=== PATIENT | male | born 1970 | race Caucasian/White ===

== ENCOUNTER 2018-05-19 09:51 | Day surgery (SDC) | payer MEDICAID ==
[2018-05-15 15:22] LABS: BASOPHILS % (AUTO) 0.5 % (0-1); EOSINOPHILS # (AUTO) 0.1 X10'3 (0-0.9); EOSINOPHILS % (AUTO) 1.1 % (0-6); LYMPHOCYTES # (AUTO) 1.6 X10'3 (1.1-4.8); LYMPHOCYTES % (AUTO) 17.5 % (21-51); MEAN CORPUSCULAR HEMOGLOBIN 30.3 PG (27.0-31.0); MEAN CORPUSCULAR HGB CONC 32.4 % (33.0-36.5); MEAN CORPUSCULAR VOLUME 93.5 FL (78-98); MONOCYTES # (AUTO) 0.7 X10'3 (0-0.9); MONOCYTES % (AUTO) 7.7 % (2-12); NEUTROPHILS # (AUTO) 6.9 X10'3 (1.8-7.7); NEUTROPHILS % (AUTO) 73.2 % (42-75); PRE OP HEMATOCRIT 44.2 % (42.0-52.0); PRE OP HEMOGLOBIN 14.3 g/dL (14.0-17.9); PRE OP PLATELET COUNT 258 X10'3 (140-440); RED BLOOD COUNT 4.72 X10'6 (4.70-6.10); RED CELL DISTRIBUTION WIDTH 15.2 % (11.5-14.5)
[2018-05-15 15:27] LABS: CLARITY,URINE CLEAR (Clear); COLOR,URINE YELLOW (Yellow); GLUCOSE, URINE NEGATIVE (Neg); KETONES,URINE NEGATIVE (Neg); LEUKOCYTE ESTERASE ,URINE NEGATIVE (Neg); NITRITES, URINE NEGATIVE (Neg); OCCULT BLOOD,URINE NEGATIVE (Neg); PROTEIN,URINE NEGATIVE (Neg); UA COLLECTION TYPE CLN CATCH MIDSTREAM; UROBILINOGEN,URINE 0.2 E.U/dL (0.2-1.0)
[2018-05-15 15:37] LABS: ALBUMIN 3.7 G/DL (3.4-5.0); ALKALINE PHOSPHATASE 52 IU/L (46-116); BLOOD UREA NITROGEN 9 MG/DL (7-18); BUN/CREATININE RATIO 10.8 (5.4-32.0); CALCIUM 8.8 MG/DL (8.5-10.1); CHLORIDE 105 MMOL/L (99-107); CREATININE 0.83 MG/DL (0.60-1.10); PRE OP ALT 22 U/L (30-65); PRE OP ANION GAP 9 (8-16); PRE OP AST 11 U/L (10-37); PRE OP BILIRUB, TOTAL 0.3 MG/DL (0.0-1.0); PRE OP GLUCOSE 105 MG/DL (70-104); PRE OP POTASSIUM 4.2 MMOL/L (3.4-5.1); PRE OP SODIUM 138 MMOL/L (135-145); TOTAL CARBON DIOXIDE 24.1 MMOL/L (24-32); TOTAL PROTEIN 7.3 G/DL (6.4-8.2); eGFR > 90 ML/MIN
[2018-05-19] VITALS (9 sets, daily range): BP systolic 122–140; BP diastolic 67–90
[~2018-05-19] VITALS: Ht 172.7 cm; Wt 88.5 kg
[~2018-05-19 09:51] MED LIST: ASPI-1140 PO; ESCI20TA38 PO; OMEP-50 PO; TAMS0.4C32 PO; ZOLP10TA5 PO; cefazolin/dext.iso 2gm/100 ML IV ONE; famotidine 20mg tablet PO ONE; ringers solution, lacted 1,000 ML IV SCH
[2018-05-19] MEDS ORDERED: LIDOcaine 1% (10mg/ml) 2ml vial ONE (09:55)
[2018-05-19] MEDS ORDERED: sevoflurane 250ml liquid IH ONE (12:09)
[2018-05-19] MEDS ORDERED: fentaNYL/PF 50MCG/1 ML 2ML syringe ONE (12:13)
[2018-05-19] MEDS ORDERED: midazolam 2 mg/2 ml injection ONE (12:14)
[2018-05-19] MEDS ORDERED: propofol inj 20 ML IV ONE (12:15)
[2018-05-19] MEDS ORDERED: ROPIVAcaine 0.5% (5mg/ml) 30ml vial ONE (12:20)
[2018-05-19] MEDS ORDERED: ringers solution, lacted 1,000 ML IV SCH (12:38)
[2018-05-19] MEDS ORDERED: ondansetron/PF 4mg/2ml inj IV PRN (12:40)
[2018-05-19] MEDS ORDERED: morphine 4 MG/ML inj SYRINge IV PRN ×2 (12:40)
[2018-05-19] MEDS ORDERED: meperidine/PF 25mg/ml syringe IV PRN ×3 (12:40)
[2018-05-19] MEDS ORDERED: proCHLORperazine 10 MG/2 ml inj IV PRN (12:40)
--- NOTE | 2018-05-19 13:05 | NUR ---
Received from OR via bed, accompanied by Anesthesiologist. Report received. Initial physical assessment done and recorded.
[2018-05-19] MEDS ORDERED: HYDROcodone/acetaminophen 10/325mg tab PO ONE ×2 (14:15→14:50)
--- NOTE | 2018-05-19 15:00 | NUR ---
Discharge criteria met, discharge instructions given, demonstrates verbal understanding. Extended stay in PACU due to migraine headache which pt states he get frequently, nausea accompanied no emesis. Surgeon qand Anesthesiologist advised. fluids given without relief. Medicated per orders, norco, IV Tylenol and Zofran. States he feels somewhat better at discharge but just wants to go home and sleep. Discharge instructions along with sitz bath given to girlfriend prior to discharge. Discharged home in stqable condition.
[2018-05-19] MEDS ORDERED: acetaminophen 1,000mg/100ml IV 100 ML IV ONE (20:00)
== END 2018-05-19 15:00 | disposition home or self-care (01) ==
LOC: PAS 09:51
PROVIDERS: ATTEND Surgery
DX: K64.2 Third degree hemorrhoids (principal); G47.33 Obstructive sleep apnea (adult) (pediatric); F17.210 Nicotine dependence, cigarettes, uncomplicated; M19.90 Unspecified osteoarthritis, unspecified site; F32.9 Major depressive disorder, single episode, unspecified; Z86.69 Personal history of other diseases of the nervous system and sense organs; Z87.39 Personal history of other diseases of the musculoskeletal system and connective tissue; Z87.19 Personal history of other diseases of the digestive system; Z87.09 Personal history of other diseases of the respiratory system; Z79.82 Long term (current) use of aspirin; Z98.890 Other specified postprocedural states; Z79.899 Other long term (current) drug therapy
CPT/HCPCS: 36415; 46947; 80053; 81003; 82948; 85025; 93005; A6224; A6449; J0131; J0690; J2175; J2250; J2405; J2704; J3010; J3490; A7000; J2795; J7120